=== PATIENT | female | born 1960 | race Caucasian/White ===

== ENCOUNTER 2022-06-10 15:02 | Outpatient (CLI) | payer BC | END 2022-06-10 15:03 | disposition home or self-care (01) | LOC: CSHMAMMO 15:02 | PROVIDERS: ATTEND Physician Assistant | DX: Z13.820 Encounter for screening for osteoporosis (principal); Z78.0 Asymptomatic menopausal state | CPT/HCPCS: 77080 ==

== ENCOUNTER 2023-09-15 11:06 | Outpatient (CLI) | payer BC | END 2023-09-15 11:07 | disposition home or self-care (01) | LOC: CSHMAMMO 11:06 | PROVIDERS: ATTEND Obstetrics & Gynecology | DX: Z12.31 Encounter for screening mammogram for malignant neoplasm of breast (principal) | CPT/HCPCS: 77063; 77067 ==